=== PATIENT | female | born 1945 | race Caucasian/White ===

== ENCOUNTER 2020-03-07 10:07 | Outpatient (CLI) | payer MEDICARE ==
[2020-03-07] MEDS ORDERED: albuterol 2.5 MG/3 ML nebule NEB PRN (11:05)
== END 2020-03-07 23:59 | disposition home or self-care (01) ==
LOC: RT 10:07
PROVIDERS: ATTEND Internal Medicine Pulmonary Disease
DX: J44.9 Chronic obstructive pulmonary disease, unspecified (principal)
CPT/HCPCS: 94060; 94727; 94729; 94760

== ENCOUNTER 2020-03-22 08:28 | Outpatient (CLI) | payer MEDICARE | END 2020-03-22 23:59 | disposition home or self-care (01) | LOC: RT 08:28 | PROVIDERS: ATTEND Internal Medicine Pulmonary Disease | DX: J44.9 Chronic obstructive pulmonary disease, unspecified (principal) | CPT/HCPCS: 94618 ==

== ENCOUNTER 2023-08-07 05:47 | Day surgery (SDC) | payer MEDICARE ==
[2023-08-05 11:59] LABS: BASOPHILS # (AUTO) 0.1 X10'3 (0-0.2); BASOPHILS % (AUTO) 0.6 % (0-1); EOSINOPHILS % (AUTO) 0.4 % (0-6); LYMPHOCYTES # (AUTO) 2.1 X10'3 (1.1-4.8); LYMPHOCYTES % (AUTO) 22.3 % (21-51); MEAN CORPUSCULAR HEMOGLOBIN 32.4 PG (27.0-31.0); MEAN CORPUSCULAR HGB CONC 33.6 g/dL (33.0-36.5); MEAN CORPUSCULAR VOLUME 96.2 FL (78-98); MEAN PLATELET VOLUME 7.7 FL (7.4-10.4); MONOCYTES # (AUTO) 0.2 X10'3 (0-0.9); NEUTROPHILS % (AUTO) 74.7 % (42-75); PRE OP HEMATOCRIT 41.5 % (35.0-45.0); PRE OP HEMOGLOBIN 13.9 g/dL (12.0-16.0); PRE OP PLATELET COUNT 255 X10'3 (140-440); PRE OP WHITE BLOOD COUNT 9.4 10'3 (4.8-10.8); RED BLOOD COUNT 4.31 X10'6 (4.20-5.60); RED CELL DISTRIBUTION WIDTH 13.8 % (11.5-14.5)
[2023-08-05 12:26] LABS: ALBUMIN 3.3 G/DL (3.4-5.0); ALBUMIN/GLOBULIN RATIO 0.8 (1.1-1.5); ALKALINE PHOSPHATASE 108 IU/L (46-116); BLOOD UREA NITROGEN 22 MG/DL (7-18); BUN/CREATININE RATIO 19.6 (10.0-20.0); CALCIUM 9.2 MG/DL (8.5-10.1); CHLORIDE 107 MMOL/L (99-107); CREATININE 1.12 MG/DL (0.40-0.90); PRE OP ALT 37 U/L (30-65); PRE OP ANION GAP 3 (8-16); PRE OP AST 28 U/L (10-37); PRE OP BILIRUB, TOTAL 0.8 MG/DL (0.0-1.0); PRE OP GLUCOSE 119 MG/DL (70-104); PRE OP POTASSIUM 4.1 MMOL/L (3.4-5.1); PRE OP SODIUM 138 MMOL/L (135-145); TOTAL CARBON DIOXIDE 28.5 MMOL/L (24-32); TOTAL PROTEIN 7.4 G/DL (6.4-8.2); eGFR 47 ML/MIN
[2023-08-07] VITALS (12 sets, daily range): BP systolic 113–146; BP diastolic 64–121; PULSE 67–115; RESP 14–23; TEMP 97.4; O2SAT 90–99
[~2023-08-07] VITALS: Ht 157.5 cm; Wt 72.5 kg
[~2023-08-07 05:47] MED LIST: ALBU2.5V13 NEB; ALBU8.5H17 INH; ALEN70TA60 PO; ATOR40TA71 PO; BUSP10TA10 PO; FLUT1BLS11 PO; IBUP-24 PO; LEVO125T PO; MEPO100S; MONT-40 PO; PRED20TA PO; PROZ10C PO; famotidine 20mg tablet PO ONE; ringers solution, lacted 1,000 ML IV SCH
[2023-08-07] MEDS ORDERED: epiNEPHrine 1 MG/ML 1 ml ampule **BRONCH ONLY ONE (07:04)
[2023-08-07] MEDS ORDERED: LIDOCAINE 4% (40MG/ML) topical solution 50ml **BRONCH ONLY ONE (07:04)
[2023-08-07] MEDS ORDERED: fentaNYL/PF 50MCG/1 ML 2ML syringe ONE (07:31)
[2023-08-07] MEDS ORDERED: midazolam 1 mg/ML 2ml injection ONE (07:31)
[2023-08-07] MEDS ORDERED: dexamethasone sod phosphate 4mg/ml inj. ONE (07:32)
[2023-08-07] MEDS ORDERED: acetaminophen 1,000mg/100ml IV 100 ML IV ONE (07:32)
[2023-08-07] MEDS ORDERED: propofol inj 20 ML IV ONE (07:32)
[2023-08-07] MEDS ORDERED: rocuronium 10mg/ml inj IV ONE (07:33)
[2023-08-07] MEDS ORDERED: glycopyrrolate 0.2mg/ml inj ONE (07:33)
[2023-08-07] MEDS ORDERED: neostigmine methylsulfate 1 MG/ML 10ml vial ONE (07:33)
[2023-08-07] MEDS ORDERED: ondansetron/PF 4mg/2ml inj ONE (07:33)
[2023-08-07] MEDS ORDERED: LIDOcaine 2% (20mg/ml) 5ml vial ONE (07:34)
[2023-08-07] MEDS ORDERED: morphine 4 MG/ML inj SYRINge IV PRN (08:20)
[2023-08-07] MEDS ORDERED: morphine 2 MG/ML inj. syringe IV PRN (08:20)
[2023-08-07] MEDS ORDERED: ringers solution, lacted 1,000 ML IV SCH (08:20)
[2023-08-07] MEDS ORDERED: ondansetron/PF 4mg/2ml inj IV PRN (08:20)
[2023-08-07] MEDS ORDERED: labetalol 20mg/4ml (5mg/ml) syringe IV PRN (08:20)
== END 2023-08-07 11:11 | disposition home or self-care (01) ==
LOC: PRE-OP 05:47
PROVIDERS: ATTEND Internal Medicine Critical Care Medicine
DX: R91.8 Other nonspecific abnormal finding of lung field (principal); R22.2 Localized swelling, mass and lump, trunk; E03.9 Hypothyroidism, unspecified; J44.9 Chronic obstructive pulmonary disease, unspecified; F41.9 Anxiety disorder, unspecified; F32.A Depression, unspecified; Z98.890 Other specified postprocedural states; Z91.040 Latex allergy status; Z88.8 Allergy status to other drugs, medicaments and biological substances; Z82.3 Family history of stroke; Z82.49 Family history of ischemic heart disease and other diseases of the circulatory system; Z80.9 Family history of malignant neoplasm, unspecified
CPT/HCPCS: 31623; 31628; 31629; 31653; 36415; 71045; 71250; 80053; 82948; 85025; 87015; 87070; 87116; 87206; 93005; 94760; J0131; J1100; J2250; J2270; J2405; J2704; J2710; J3010; J3490; J7120; Z7506; Z7508; Z7512; 31622; 31624; 31625; 31626; 31627; 31654; 88172; 88173; 88305; A4618; J0171